=== PATIENT | male | born 1960 | race African-American/Black ===

== ENCOUNTER 2017-07-18 21:53 | Emergency (ER) | payer SELFPAY ==
[2017-07-18 21:55] VITALS: BP 181/104; PULSE 85; RESP 18; TEMP 98.7
[2017-07-18] MEDS ORDERED: AMLO10 PO (22:08)
[2017-07-18] MEDS ORDERED: SODIUM CHLORIDE 0.9% FLUSH 10 ML FLUSH IVF PRN (22:30)
--- NOTE | 2017-07-18 22:38 | RADRPT ---
EXAM DATE/TIME: 07/18/2017 22:31 [facility] COMPARISON: No previous studies available for comparison. INDICATIONS : Short of breath MEDICAL HISTORY : Cardiovascular disease. SURGICAL HISTORY : None. ENCOUNTER: Initial ACUITY: 3 days PAIN SCORE: 0/10 LOCATION: chest FINDINGS: A single view of the chest demonstrates the lungs to be symmetrically aerated without evidence of mas s, infiltrate or effusion. The cardiomediastinal contours are unremarkable. Osseous structures are intact. CONCLUSION: No acute disease. Preet Collier MD on July 18, 2017 at 22:35 Board Certified Radiologist. This report was verified electronically.
[2017-07-18 22:41] VITALS: O2SAT 100
[2017-07-18 22:55] LABS: AUTOMATED NEUTROPHIL # 2.6 TH/MM3 (1.8-7.7); BASOPHIL # 0.1 TH/MM3 (0-0.2); BASOPHIL % 1.3 % (0.0-2.0); EOSINOPHIL % 0.8 % (0.0-4.0); HEMATOCRIT 40.2 % (39.0-51.0); HEMOGLOBIN 13.6 GM/DL (13.0-17.0); LYMPH % 29.3 % (9.0-44.0); LYMPHOCYTE # 1.3 TH/MM3 (1.0-4.8); MEAN CORPUSCULAR HEMOGLOBIN 30.1 PG (27.0-34.0); MEAN CORPUSCULAR HGB CONC 33.8 % (32.0-36.0); MEAN PLATELET VOLUME 9.6 FL (7.0-11.0); MONO % 9.8 % (0.0-8.0); MONOCYTE # 0.4 TH/MM3 (0-0.9); NEUT % 58.8 % (16.0-70.0); PLATELET COUNT 238 TH/MM3 (150-450); RED BLOOD COUNT 4.52 MIL/MM3 (4.50-5.90); RED CELL DISTRIBUTION WIDTH 14.5 % (11.6-17.2); WHITE BLOOD COUNT 4.5 TH/MM3 (4.0-11.0)
--- NOTE | 2017-07-18 23:41 | RADRPT ---
EXAM DATE/TIME: 07/18/2017 23:19 [facility] COMPARISON: No previous studies available for comparison. INDICATIONS : Cephalgia. RADIATION DOSE: 64.63 CTDIvol (mGy) MEDICAL HISTORY : Hypertension. SURGICAL HISTORY : Appendectomy. ENCOUNTER: Initial ACUITY: 1 day PAIN SCALE: 5/10 LOCATION: cranial TECHNIQUE: Multiple contiguous axial images were obtained of the head. Using automated exposure control and adj ustment of the mA and/or kV according to patient size, radiation dose was kept as low as reasonably a chievable to obtain optimal diagnostic quality images. DICOM format image data is available electro nically for review and comparison. FINDINGS: CEREBRUM: The ventricles are normal for age. No evidence of midline shift, mass lesion, hemorrhage or acute in farction. No extra-axial fluid collections are seen. POSTERIOR FOSSA: The cerebellum and brainstem are intact. The 4th ventricle is midline. The cerebellopontine angle i s unremarkable. EXTRACRANIAL: The visualized portion of the orbits is intact. SKULL: The calvaria is intact. No evidence of skull fracture. CONCLUSION: 1. No acute intracranial abnormalities. Mc Diaz MD on July 18, 2017 at 23:37 Board Certified Radiologist. This report was verified electronically.
[2017-07-18 23:44] LABS: ALBUMIN 3.3 GM/DL (3.4-5.0); BLOOD UREA NITROGEN 12 MG/DL (7-18); CREATININE 1.14 MG/DL (0.60-1.30); GLOMERULAR FILTRATION RATE 67 ML/MIN (>89); GLUCOSE,RANDOM 100 MG/DL (74-106); TOTAL PROTEIN 7.3 GM/DL (6.4-8.2)
[2017-07-18 23:45] LABS: ALKALINE PHOSPHATASE 91 U/L (45-117); ALT (GPT) 23 U/L (12-78); AST (GOT) 44 U/L (15-37); BICARBONATE 24.3 MEQ/L (21.0-32.0); CALCIUM 8.7 MG/DL (8.5-10.1); CHLORIDE 106 MEQ/L (98-107); SODIUM (NA) 138 MEQ/L (136-145); TOTAL BILIRUBIN ADULT 0.3 MG/DL (0.2-1.0); TROPONIN I LESS THAN 0.02 NG/ML (0.02-0.05)
[2017-07-19] VITALS: BP 187/107; PULSE 70; RESP 16; O2SAT 98
[2017-07-19 00:13] LABS: BACTERIA, URINE OCC /hpf; BILIRUBIN, URINE NEG (NEG); BLOOD, URINE NEG (NEG); GLUCOSE,URINE NEG (NEG); KETONE, URINE NEG (NEG); MUCUS URINE FEW /lpf (OCC); NITRITE,URINE NEG (NEG); PH, URINE 7.5 (5.0-8.5); URINE COLOR LIGHT-YELLOW (YELLW/STRAW); URINE LEUKOCYTE ESTERASE NEG (NEG)
[2017-07-19] MEDS ORDERED: cloNIDine HCL 0.1 MG TAB PO ONE (00:15)
[2017-07-19 01:13] VITALS: BP 167/106; PULSE 69; RESP 16; O2SAT 99
--- NOTE | 2017-07-19 02:06 | PD ---
HPI Chief Complaint: Numbness/Tingling Time Seen by Provider: 22:24 Travel History International Travel<30 days: No Contact w/Intl Traveler<30days: No Traveled to known affect area: No History of Present Illness HPI 57-year-old male presents to the emergency department for intermittent tingling to the left upper extremity and occasionally the left lower extremity without weakness. Patient reports he has high blood pressure and has been out of his [facility] antihypertensive medicine for some time. Patient also has history of thyroid dysfunction but takes no medication for this. Patient denies any headache visual disturbance confusion speech disturbance difficulty with swallowing and denies any chest pain shortness of breath sweats nausea vomiting referred neck jaw back shoulder arm pain. No abdominal pain. No injury or fall. Patient rates pain 0/10 intensity. PFSH Past Medical History Narrative Medical Hypertension, thyroid dysfunction; no tobacco use; nursing notes reviewed Cardiovascular Problems: Yes (hypertension) Diminished Hearing: No Tetanus Vaccination: Never Vaccinated Past Surgical History Abdominal Surgery: Yes (appendicits) Social History Alcohol Use: Yes Tobacco Use: No Substance Use: No Allergies-Medications (Allergen,Severity, Reaction): Coded Allergies: No Known Allergies (Unverified , 07/18/17) Reported Meds & Prescriptions Reported Meds & Active Scripts Active Clonidine (Clonidine HCl) 0.1 Mg Tab 0.1 Mg PO Q12HR PRN Amlodipine (Amlodipine Besylate) 10 Mg Tab 10 Mg PO DAILY Reported Norvasc (Amlodipine Besylate) 10 Mg Tab 10 Mg PO DAILY Review of Systems Except as stated in HPI: all other systems reviewed are Neg Physical Exam Narrative GENERAL: Well-developed well-nourished male no acute distress no respiratory distress GCS 15 hypertensive SKIN: Warm and dry. HEAD: Atraumatic. Normocephalic. EYES: Pupils equal and round. No scleral icterus. No injection or drainage. ENT: No nasal bleeding or discharge. Mucous membranes pink and moist. NECK: Trachea midline. No JVD. CARDIOVASCULAR: Regular rate and rhythm. RESPIRATORY: No accessory muscle use. Clear to auscultation. Breath sounds equal bilaterally. GASTROINTESTINAL: Abdomen soft, non-tender, nondistended. Hepatic and splenic margins not palpable. MUSCULOSKELETAL: Extremities without clubbing, cyanosis, or edema. No obvious deformities. NEUROLOGICAL: Awake and alert. No obvious cranial nerve deficits. Motor grossly within normal limits. Five out of 5 muscle strength in the arms and legs. No pronator drift. No limb ataxia. Sensory exam intact. DTRs 2+ and equal. No clonus. Normal speech. PSYCHIATRIC: Appropriate mood and affect; insight and judgment normal. Data Data Last Documented VS Vital Signs Date Time Temp Pulse Resp B/P (MAP) Pulse Ox O2 Delivery O2 Flow Rate FiO2 07/19/17 03:43 07/19/17 02:22 70 16 100 Room Air 07/18/17 21:55 98.7 Orders Orders Electrocardiogram (07/18/17 22:24) Prothrombin Time / Inr (Pt) (07/18/17 22:24) Act Partial Throm Time (Ptt) (07/18/17:24) Complete Blood Count With Diff (07/18/17:) Comprehensive Metabolic Panel (07/18/17:24) Creatine Kinase (Cpk) (07/18/17 22:24) Troponin I (07/18/17 22:24) Urinalysis - C+S If Indicated (07/18/17 22:24) Ct Brain W/O Iv Contrast(Rout) (07/18/17 22:24) Chest, Single Ap (07/18/17 22:24) Ecg Monitoring (07/18/17 22:24) Iv Access Insert/Monitor (07/18/17:24) Oximetry (07/18/17:24) Sodium Chloride 0.9% Flush (Ns Flush) (07/18/17 22:30) Thyroid Stimulating Hormone (07/18/17 22:24) CKMB (07/18/17 22:30) CKMB% (07/18/17 22:30) Clonidine (Catapres) (07/19/17 00:15) Free T3 (07/19/17 00:04) Free Thyroxine (T4) (07/19/17 00:04) Urine Culture (07/18/17 22:40) Ed Discharge Order (07/19/17 03:19) Labs Laboratory Tests Test 07/18/17 22:30 07/18/17 22:40 07/19/17 01:50 White Blood Count 4.5 TH/MM3 Red Blood Count 4.52 MIL/MM3 Hemoglobin 13.6 GM/DL Hematocrit 40.2 % Mean Corpuscular Volume 89.0 FL Mean Corpuscular Hemoglobin 30.1 PG Mean Corpuscular Hemoglobin Concent 33.8 % Red Cell Distribution Width 14.5 % Platelet Count 238 TH/MM3 Mean Platelet Volume 9.6 FL Neutrophils (%) (Auto) 58.8 % Lymphocytes (%) (Auto) 29.3 % Monocytes (%) (Auto) 9.8 % Eosinophils (%) (Auto) 0.8 % Basophils (%) (Auto) 1.3 % Neutrophils # (Auto) 2.6 TH/MM3 Lymphocytes # (Auto) 1.3 TH/MM3 Monocytes # (Auto) 0.4 TH/MM3 Eosinophils # (Auto) 0.0 TH/MM3 Basophils # (Auto) 0.1 TH/MM3 CBC Comment DIFF FINAL Differential Comment Blood Urea Nitrogen 12 MG/DL Creatinine 1.14 MG/DL Random Glucose 100 MG/DL Total Protein 7.3 GM/DL Albumin 3.3 GM/DL Calcium Level 8.7 MG/DL Alkaline Phosphatase 91 U/L Aspartate Amino Transf (AST/SGOT) 44 U/L Alanine Aminotransferase (ALT/SGPT) 23 U/L Total Bilirubin 0.3 MG/DL Sodium Level 138 MEQ/L Potassium Level 5.0 MEQ/L Chloride Level 106 MEQ/L Carbon Dioxide Level 24.3 MEQ/L Anion Gap 8 MEQ/L Estimat Glomerular Filtration Rate 67 ML/MIN Total Creatine Kinase 416 U/L Creatine Kinase MB 2.3 NG/ML Creatine Kinase MB % 0.6 % Troponin I LESS THAN 0.02 NG/ML Free Thyroxine 0.74 NG/DL Free Triiodothyronine (T3) pg/dL 2.98 PG/ML Thyroid Stimulating Hormone 3rd Gen 11.100 uIU/ML Urine Color LIGHT-YELLOW Urine Turbidity HAZY Urine pH 7.5 Urine Specific [place] 1.013 Urine Protein NEG mg/dL Urine Glucose (UA) NEG mg/dL Urine Ketones NEG mg/dL Urine Occult Blood NEG Urine Nitrite NEG Urine Bilirubin NEG Urine Urobilinogen LESS THAN 2.0 MG/DL Urine Leukocyte Esterase NEG Urine RBC 1 /hpf Urine WBC 3 /hpf Urine Bacteria OCC /hpf Urine Mucus FEW /lpf Urine Yeast (Budding) FEW Microscopic Urinalysis Comment CATH-CULTURE IND Prothrombin Time 10.0 SEC Prothromb Time International Ratio 1.0 RATIO Activated Partial Thromboplast Time 24.1 SEC MDM Medical Decision Making Medical Screen Exam Complete: Yes Emergency Medical Condition: Yes Medical Record Reviewed: Yes Interpretation(s) Last Impressions Head CT 07/18/172223 Signed Impressions: Service Date/Time: Tuesday, July 18, 2017 23:19 - CONCLUSION: 1. No acute intracranial abnormalities. Mc Diaz MD Chest X-Ray 07/18/172223 Signed Impressions: Service Date/Time: Tuesday, July 18, 2017 22:31 - CONCLUSION: No acute disease. Preet Collier MD CBC & BMP Diagram 07/18/17 22:30 Total Protein 7.3, Albumin 3.3 L, Calcium Level 8.7, Alkaline Phosphatase 91, Aspartate Amino Transf (AST/SGOT) 44 H, Alanine Aminotransferase (ALT/SGPT) 23, Total Bilirubin 0.3 Vital Signs Date Time Temp Pulse Resp B/P (MAP) Pulse Ox O2 Delivery O2 Flow Rate FiO2 07/19/17 01:13 69 16 167/106 (126) 99 Room Air 07/19/17 00:00 70 16 187/107 (133) 98 Room Air 07/18/17 22:41 100 Room Air 07/18/17 21:55 98.7 85 18 181/104 (129) tshL 11.110 Differential Diagnosis Uncontrolled hypertension, hypertensive urgency, hypertensive crisis, TIA, CVA, thyroid dysfunction, arrhythmia, ACS, MS Narrative Course Patient placed on cardiac cath technician IV access obtained specimens collected and sent for resulting Patient administer clonidine 0.[address] brain noncontrast reveals no acute process Blood pressure is trending downwards and at 2 AM blood pressure is 144/86 patient feels well and is desirous of being discharged home. Patient is aware that his thyroid function is abnormal and reports that he has thyroid dysfunction history and does not take thyroid medication. Patient is aware that further thyroid testing is indicated. 3:20 AM patient remains asymptomatic with marked improvement of blood pressure and is desirous of being discharged home. Patient states she is unable to wait for pending thyroid test. Patient is aware that his thyroid function is abnormal has had abnormal thyroid function and will follow up with primary care/ [facility] regarding management of his thyroid disease. Patient states that he can always return to have the results of this test discussed with him but is unable to stay any longer at this time. Patient is otherwise stable and is aware that it is important that he be started on thyroid medication if his other lab values support his elevated TSH value. Patient acknowledges understanding of this and will follow up closely but it is necessary for him to leave at this time. Patient needs to have prescription refills provided to him for blood pressure management as that is markedly necessary for his hypertensive management. We will provide him with prescriptions for refill of his amlodipine 1 month supply with refill as well as as needed clonidine 0.1 mg to take as often as every 12 hours as needed for blood pressure greater than 180 /95. Diagnosis Primary Impression: Poorly controlled blood pressure Additional Impressions: Encounter for medication refill Thyroid dysfunction Referrals: [facility] call for appointment Call in a.m. to schedule follow-up appointment Patient Instructions: General Instructions Med/Other Pt SpecificInfo: Prescription(s) given Scripts Clonidine (Clonidine) 0.1 Mg Tab 0.1 MG PO Q12HR Y for SBP>180, DBP>95, #7 TAB 0 Refills Prov: Vivien Fletcher MD 07/19/17 Amlodipine (Amlodipine) 10 Mg Tab 10 MG PO DAILY for Blood Pressure Management, #30 TAB 1 Refill Prov: Vivien Fletcher MD 07/19/17 Disposition: 01 DISCHARGE HOME Condition: Stable Vivien Fletcher MD July 19, 2017 02:06
[2017-07-19 02:22] VITALS: BP 144/86; PULSE 70; RESP 16; O2SAT 100
[2017-07-19] MEDS ORDERED: CLON0.1T PO (03:20)
[2017-07-19] MEDS ORDERED: AMLO10TA2 PO (03:20)
[2017-07-19 03:45] LABS: FREE T3 2.98 PG/ML (2.18-3.98); FREE T4 0.74 NG/DL (0.76-1.46)
--- NOTE | 2017-07-19 18:01 | EKG ---
Date Performed: 07/18/2017 Time Performed: 22:49:03 PTAGE: 57 years EKG: Sinus rhythm WITH FIRST DEGREE AV BLOCK LEFT ANTERIOR FASCICULAR BLOCK NONSPECIFIC T-WAVE ABNORMALITY ABNORMAL EC G NO PREVIOUS TRACING DOCTOR: Maria Dolores Palacio Interpretating Date/Time 07/19/2017 17:59:49
== END 2017-07-19 03:46 | disposition home or self-care (01) ==
LOC: NEPC 21:53
DX: I10 Essential (primary) hypertension (principal); E07.9 Disorder of thyroid, unspecified; R94.31 Abnormal electrocardiogram [ECG] [EKG]; Z76.0 Encounter for issue of repeat prescription; Z79.899 Other long term (current) drug therapy
CPT/HCPCS: 70450; 71045; 80053; 81001; 82550; 82552; 84439; 84443; 84481; 84484; 85025; 85610; 85730; 87086; 93005